=== PATIENT | male | born 1995 | race Caucasian/White ===

== ENCOUNTER 2019-05-11 00:40 | Emergency (ER) | payer SELFPAY ==
--- NOTE | 2019-05-11 00:46 | ECG_ITS ---
Measurements Intervals [place] Rate: 91 P: 58 [place]: 159 QRS: 37 QRSD: 128 T: 68 QT: 380 QTc: 469 SINUS RHYTHM POSSIBLE RIGHT VENTRICULAR CONDUCTION DELAY [RSR (QR) IN V1/V2] MODERATE T-WAVE ABNORMALITY, CONSIDER ANTERIOR ISCHEMIA [-0.1+ mV T WAVE IN V3/V4] Compared to ECG 10/16/2016 17:48:04 T-wave abnormality now present Possible ischemia now present Intraventricular conduction delay no longer present Electronically Signed On 05-11-2019 19:23:36 CDT by Jany Ovalles M.D. [email or web address]
--- NOTE | 2019-05-11 00:49 | ED_ITS ---
HPI - General Adult General: Chief complaint: Anxiety Stated complaint: withdrawls Time Seen by Provider: 05/11/19 00:43 History of Present Illness: HPI narrative: Ricardo is a 23-year-old male who comes in claiming he is having severe anxiety after stopping kratom that he took [id number] for anxiety. He took it for approximately 3 months to see if it would work better than the Atarax that he was taking. He is adamant he has no homicidal or suicidal ideation he just feels anxious and wants help with the withdrawal syndrome. He denies any other complaints. Associated symptoms: Deny chest pain, confusion, diaphoresis, dyspnea, headache(s), malaise, nausea, rash, palpitations, syncope or vomiting Review of Systems General: Reports: other (negative unless marked) Const: Denies: fever, chills, body aches, fatigue, malaise or diaphoresis Eyes: Denies: change in vision or blurry vision ENMT: Denies: throat pain, painful swallowing, hoarseness, ear pain, ear discharge, Change in hearing or nasal discharge Card: Denies: chest pain, palpitations, irregular heart rhythm, syncope, pre- syncope, shortness of breath on exertion or shortness of breath when lying down Resp: Denies: shortness of breath, productive cough, non-productive cough, wheezing, coughing up blood or chest congestion GI: Denies: abdominal pain, nausea, vomiting, vomiting blood, coffee grounds in vomit, diarrhea, constipation, cramping, blood in stool or black tarry stool : Denies: flank pain, difficulty urinating, painful urination, urinary frequency, urinary urgency, decreased urine ouput, urinary incontinence or blood in urine Musc: Denies: neck pain, back pain, extremity pain, extremity swelling, joint pain, joint swelling, joint warmth or joint stiffness Skin/Breast: Denies: rash, skin tenderness or yellow skin Neuro: Denies: headache, numbness in extremities, weakness in extremities, changes in sensation, lack of coordination, difficulty walking, dizziness, vertigo or confusion Endo: Denies: excessive thirst, tired all the time, cold intolerance, excessive sweating, flushing or hot flashes Jordi/Lymph: Denies: easy bruising, easy bleeding, petechiae or enlarged lymph nodes All/Imm: Denies: hives, throat swelling, tongue swelling, facial swelling or acute wheezing PFSH ED PFSH: Medical History (Updated 05/11/19 @ 01:53 by Heike Callaway) Acute anxiety Social History Smoking and tobacco status: former smoker Physical Exam Const: COMMON NORMALS: no apparent distress, oriented x3, no limitations, healthy appearing and well nourished EXAM LIMITATIONS: no altered mental status GENERAL APPEARANCE: cooperative, well kempt and well developed ORIENTATION/CONSCIOUSNESS: Yes awake HENMT: COMMON NORMALS: normocephalic, head/scalp atraumatic, hearing grossly normal bilaterally, external ears normal, EAC's normal, external nose normal and moist oral mucous membranes HEAD & SCALP: normal to inspection, normocephalic and atraumatic FACE & SINUS: normal facial exam and face symmetric NOSE: external nose normal and nares normal EXTERNAL EAR: Yes external ears normal EXTERNAL AUDITORY CANAL: EAC's normal MOUTH: oral and palatal mucosa normal and tongue normal Eye: COMMON NORMALS: PERRL, EOMs intact bilaterally, conjunctivae normal and no scleral icterus GENERAL EYE: normal appearance of both eyes and normal light reflex CONJUNCTIVA: Yes conjunctivae normal SCLERA: sclerae normal CORNEA: Yes corneas normal PUPIL: Yes PERRL DIRECT OPHTHALMOSCOPY: Yes normal light reflex Neck/C-Spine: COMMON NORMALS: full ROM, no lymphadenopathy, supple, no meningeal signs and no JVD GENERAL: Yes normal visual inspection and Yes trachea midline CERVICAL SPINE: Yes cervical ROM normal Chest: COMMONS NORMALS: inspection of chest normal and palpation of chest normal Resp: COMMON NORMALS: normal respiratory effort, no retractions, no use of accessory muscles and clear to auscultation bilaterally EFFORT & INSPECTION: Yes able to speak in complete sentences AUSCULTATION: clear to auscultation bilaterally Cardio: COMMON NORMALS: no JVD, regular rhythm, S1 normal heart sound, S2 normal heart sound, no gallops, no clicks, no murmurs and no rub JUGULAR VENOUS DISTENTION: no JVD RATE: tachycardic RHYTHM: regular rhythm HEART SOUNDS: S1 normal and S2 normal GI: COMMON NORMALS: soft to palpation, non-tender, no hepatosplenomegaly and no masses INSPECTION: Yes normal to inspection PALPATION: Yes soft and Yes no hepatosplenomegaly : COMMON NORMALS: Yes no CVA tenderness BLADDER/KIDNEY EXAM: Yes no CVA tenderness Back/Pelvis: COMMON NORMALS: no CVA tenderness, thoracic and lumbar spine normal to inspection, no thoracic nor lumbar tenderness and thoraco-lumbar ROM normal Extremity: COMMON NORMALS: normal to inspection, full ROM, normal capillary refill, no joint enlargement, no clubbing, cyanosis or edema and no calf tenderness Neuro: COMMON NORMALS: oriented x3, CN's II-XII intact bilaterally, moves all extremities, no focal motor deficits and no sensory deficits noted MENINGEAL SIGNS: Yes no meningeal signs Psych: COMMON NORMALS: mental status grossly normal, thought process normal, cooperative, affect normal, speech normal and activity/motor behavior normal APPEARANCE: Yes well kempt SPEECH: Yes normal speech THOUGHT PROCESS: normal thought process Skin: COMMON NORMALS: no rashes or lesions noted, skin turgor normal, no jaundice, no petechiae and no mottling GENERAL SKIN EXAM: no rashes or lesions noted and turgor normal Course Vital Signs: Vital signs: Vital Signs Temperature 97.6 F 05/11/19 00:51 Pulse Rate 86 05/11/19 02:10 Respiratory Rate 16 05/11/19 02:10 Blood Pressure 120/84 05/11/19 02:10 Pulse Oximetry 100 05/11/19 02:10 MDM - General Adult MDM Narrative: Medical decision making narrative: Ricardo is a 23-year-old male who comes in complaining of a new anxiety after trying to detox from kratom. He is feeling better here. I did review the case with poison control who states the patient have mild if any side effects. It is possible that his anxiety is just coming back that he stopped using the medicine. At this time he is ready for discharge. I have given him Atarax here and he states he has a large amount of Atarax at home. We will go ahead and discharge him home per his request but he does understand he is welcome to return here should his symptoms change or worsen. Lab Data: Labs: Lab Results 05/11/19 05/11/19 05/11/19 Range/Units 00:57 00:57 00:57 WBC 5.7 (4.0-10.0) 10^3/ uL RBC 5.00 (4.1-5.3) 10^6/u L Hgb 14.8 (11.7-16.6) g/dL Hct 43.3 (42.0-52.0) % MCV 86.6 (80-94) fL MCH 29.6 (28.0-34.0) pg MCHC 34.2 (30.0-36.0) g/dL RDW 11.8 L (12.1-15.1) % Plt Count 169 (130-400) 10^3/c mm MPV 10.9 H (7.4-10.4) fL Neut % (Auto) 66.0 % Lymph % (Auto) 23.9 % [place] % (Auto) 7.5 % Eos % (Auto) 1.8 % Baso % (Auto) 0.4 % Neut # (Auto) 3.8 (1.8-7.7) 10^3/u L Lymph # (Auto) 1.4 (0.8-4.8) 10^3/u L [place] # (Auto) 0.4 (0.2-0.9) 10^3/u L Eos # (Auto) 0.1 (0.0-0.8) 10^3/u L Baso # (Auto) 0.0 (0.0-0.1) 10^3/u L Nucleated RBC % (a uto) 0 % Nucleated RBCs # 0.0 /100WBC PT 14.20 H (10.5-13.3) SECO NDS INR 1.09 (0.8-1.2) Sodium 141 (136-145) mmol/L Potassium 3.2 L (3.5-5.1) mmol/L Chloride 101 (98-107) mmol/L Carbon Dioxide 27 (22-29) mmol/L Anion Gap 16.2 (5-19) BUN 9 (6-20) mg/dL Creatinine 1.0 (0.7-1.2) mg/dL GFR Calculation 93.4 (90-130) mL/min Glucose 112 (65-115) mg/dL Calculated Osmolal ity 289 (285-295) mOsm/k g Calcium 9.6 (8.5-10.5) mg/dL Magnesium (1.7-2.3) mg/dL Total Bilirubin 0.2 (0.15-1.2) mg/dL AST 22 (0-40) U/L ALT 15 (0-41) U/L Alkaline Phosphata se 83 (40-130) IU/L Total Protein 7.8 (6.6-8.7) g/dL Albumin 4.6 (3.5-5.2) g/dL Globulin 3.2 (1.3-4.6) g/dL Salicylates < 0.3 L (3-10) mg/dL Acetaminophen < 5.0 L (10-30) ug/mL Phenytoin 0.8 L (10-20) ug/mL Valproic Acid 2.8 L (50-100) mcg/mL Carbamazepine 2.0 L (4.0-12.0) ug/mL [employer] (0.6-1.2) mmol/L Ethyl Alcohol < 10 (0-10) mg/dL 05/11/19 05/11/19 Range/Units 00:57 00:57 WBC (4.0-10.0) 10^3/ uL RBC (4.1-5.3) 10^6/u L Hgb (11.7-16.6) g/dL Hct (42.0-52.0) % MCV (80-94) fL MCH (28.0-34.0) pg MCHC (30.0-36.0) g/dL RDW (12.1-15.1) % Plt Count (130-400) 10^3/c mm MPV (7.4-10.4) fL Neut % (Auto) % Lymph % (Auto) % [place] % (Auto) % Eos % (Auto) % Baso % (Auto) % Neut # (Auto) (1.8-7.7) 10^3/u L Lymph # (Auto) (0.8-4.8) 10^3/u L [place] # (Auto) (0.2-0.9) 10^3/u L Eos # (Auto) (0.0-0.8) 10^3/u L Baso # (Auto) (0.0-0.1) 10^3/u L Nucleated RBC % (a uto) % Nucleated RBCs # /100WBC PT (10.5-13.3) SECO NDS INR (0.8-1.2) Sodium (136-145) mmol/L Potassium (3.5-5.1) mmol/L Chloride (98-107) mmol/L Carbon Dioxide (22-29) mmol/L Anion Gap (5-19) BUN (6-20) mg/dL Creatinine (0.7-1.2) mg/dL GFR Calculation (90-130) mL/min Glucose (65-115) mg/dL Calculated Osmolal ity (285-295) mOsm/k g Calcium (8.5-10.5) mg/dL Magnesium 1.9 (1.7-2.3) mg/dL Total Bilirubin (0.15-1.2) mg/dL AST (0-40) U/L ALT (0-41) U/L Alkaline Phosphata se (40-130) IU/L Total Protein (6.6-8.7) g/dL Albumin (3.5-5.2) g/dL Globulin (1.3-4.6) g/dL Salicylates (3-10) mg/dL Acetaminophen (10-30) ug/mL Phenytoin (10-20) ug/mL Valproic Acid (50-100) mcg/mL Carbamazepine (4.0-12.0) ug/mL [employer] 0.1 L (0.6-1.2) mmol/L Ethyl Alcohol (0-10) mg/dL EKG Data^: EKG 1: Attestation: I personally reviewed and interpreted this EKG as follows: EKG interpretation date: 05/11/19 EKG interpretation time: 01:07 Discharge Plan Discharge Patient Disposition: Home, Self-Care Clinical Impression: Acute anxiety Condition: Stable Prescriptions: No Action Lexapro 10 mg Tablet 10 mg PO DAILY RF: 0 Discharge Orders: Discharge Order (Routine); Ordered 05/11/19 Ordered By: Heike Callaway Referrals: [facility] - SHAN SNYDER, [Staff Physician] - (You can also call [facility] in [place] for an appointment to be seen.) Discharge Diet: Advance as tolerated Discharge Activity: Increase activity as tolerated Patient Instructions: Generalized Anxiety Disorder (ED), Opioid Withdrawal (ED), Anxiety (ED) Activity Restrictions/Additional Instructions: Please return to the ER immediately for any of the signs or symptoms listed on your discharge instruction sheets, worsening/changing of your symptoms, you are not getting better as quickly as expected, or for ANY other cause or concerns. If you develop any worsening of your symptoms or develop thoughts of wanting to hurt yourself or anyone else please return to the ER immediately for recheck. Discharge Date/Time: 05/11/19 02:10 Coding Level of Care Code ED [employer] for Carl Fwd Exam Comprehensive
[2019-05-11 00:51] VITALS: BP 113/87; PULSE 102; RESP 18; TEMP 36.4; O2SAT 100; BMI 20.9
[2019-05-11] MEDS: sodium chloride 0.9% 1,000 ML 999 ML IV (01:15)
[2019-05-11 01:16] LABS: Alanine Aminotransferase 15 U/L (0-41); Albumin Level 4.6 g/dL (3.5-5.2); Alkaline Phosphatase 83 IU/L (40-130); Anion Gap 16.2 (5-19); Aspartate Amino Transferase 22 U/L (0-40); Blood Urea Nitrogen 9 mg/dL (6-20); Calcium 9.6 mg/dL (8.5-10.5); Carbon Dioxide 27 mmol/L (22-29); Chloride 101 mmol/L (98-107); Globulin 3.2 g/dL (1.3-4.6); Glomerular Filtration Rate 93.4 mL/min (90-130); Glucose 112 mg/dL (65-115); Osmolality Calculated 289 mOsm/kg (285-295); Phenytoin Dilantin 0.8 ug/mL (10-20); Potassium 3.2 mmol/L (3.5-5.1); Sodium 141 mmol/L (136-145); Total Bilirubin 0.2 mg/dL (0.15-1.2); Total Protein 7.8 g/dL (6.6-8.7); Valproic Acid Level 2.8 mcg/mL (50-100)
[2019-05-11] MEDS: ondansetron 2 mg/ML SDV 2 mL 4 MG IVP (01:20)
[2019-05-11 01:25] LABS: Basophils % 0.4 %; Eosinophils # 0.1 10^3/uL (0.0-0.8); Eosinophils % 1.8 %; Hematocrit 43.3 % (42.0-52.0); Hemoglobin 14.8 g/dL (11.7-16.6); Lymphocytes # 1.4 10^3/uL (0.8-4.8); Lymphocytes % 23.9 %; Mean Corpuscular HGB Conc 34.2 g/dL (30.0-36.0); Mean Corpuscular Hemoglobin 29.6 pg (28.0-34.0); Mean Corpuscular Volume 86.6 fL (80-94); Mean Platelet Volume 10.9 fL (7.4-10.4); Monocytes # 0.4 10^3/uL (0.2-0.9); Monocytes % 7.5 %; Neutrophils # 3.8 10^3/uL (1.8-7.7); Nucleated Red Blood Cells % 0 %; Platelet Count 169 10^3/cmm (130-400); Red Cell Distribution Width 11.8 % (12.1-15.1); White Blood Count 5.7 10^3/uL (4.0-10.0)
[2019-05-11 01:26] LABS: INR 1.09 (0.8-1.2); Lithium 0.1 mmol/L (0.6-1.2)
[2019-05-11 01:27] LABS: Acetaminophen < 5.0 ug/mL (10-30); Alcohol Level < 10 mg/dL (0-10); Salicylate < 0.3 mg/dL (3-10)
[2019-05-11 01:38] LABS: Magnesium 1.9 mg/dL (1.7-2.3)
[2019-05-11] MEDS: hyDROXYzine 25 mg Capsule 50 MG PO (01:54)
[2019-05-11 02:10] VITALS: BP 120/84; PULSE 86; RESP 16; O2SAT 100
--- NOTE | 2019-05-11 02:26 | PC.NURSE ---
RN reviewed and agrees with assessment
== END 2019-05-11 02:10 | disposition home or self-care (01) ==
LOC: ER 02:44
PROVIDERS: Emergency Provider Emergency Medicine
DX: F41.1 Generalized anxiety disorder (principal); F11.23 Opioid dependence with withdrawal; F41.9 Anxiety disorder, unspecified; T40.2X6A Underdosing of other opioids, initial encounter; Z91.128 Patient's intentional underdosing of medication regimen for other reason
CPT/HCPCS: 12345; 36415; 80053; 80156; 80164; 80178; 80185; 80307; 83735; 85025; 85610; 93005; 96361; 96374; 96375; 99282; 99283; J2405; J7030